=== PATIENT | female | born 1945 | race Caucasian/White ===

== ENCOUNTER 2024-09-21 00:27 | Observation (INO) ==
[2024-09-21] MEDS ORDERED: 0.9 % SODIUM CHLORIDE 1000 ML 1,000 ML IV SCH (00:45)
--- NOTE | 2024-09-21 00:49 | Emergency Department Note ---
HPI - Weakness General Chief complaint: Weakness Stated complaint: fall- laceration Time Seen by Provider: 09/21/24 00:29 Source: patient, family and EMS Mode of arrival: ambulance Limitations: no limitations History of Present Illness HPI Narrative: This is a 78-year-old white female who presents with 2 days of lethargy and weakness. Patient states she was diagnosed with a UTI, and has been taking antibiotics for it. She states she is progressively worsening. She denies urinary symptoms currently, but states she feels very weak and lethargic. She fell while trying to ambulate to the restroom this evening, and obtained a skin tear to her right arm, as well as a left periorbital contusion. She denies nausea or vomiting. She denies chest pain or shortness of breath. She denies fever. Nothing makes her symptoms better or worse. She is in no distress and has no other complaints. She does admit to smoking cannabis, but has no other drug use, denies any opiate use. MD Complaint: Reports generalized weakness Onset (ago): day(s) (2) Duration: Reports progressively worsening Location: Reports generalized Migration: Reports none Severity: moderate Quality: Denies tingling or numbness Relieving factors: Reports none Exacerbating factors: Reports exertion Context: Reports recent illness Associated symptoms: Reports confusion; Denies chest pain, dysuria, easy bruising or fever/chills Related Data Previous Rx's Medication Instructions Recorded cephalexin 500 mg capsule 500 mg PO BID UTI 5 days #10 caps 11/04/23 Allergies Allergy/AdvReac Type Severity Reaction Status Date / Time haloperidol (From Haldol) Allergy Verified 09/21/24 00:46 nitrofurantoin Allergy Verified 09/21/24 00:46 Review of Systems Status of ROS 10 or more systems reviewed and unremark able except as noted in history and below Constitutional Reports: fatigue and malaise; Denies: fever, chills or change in weight Eyes Denies: change in vision, blurry vision, blind spots, light sensitivity or eye discomfort Ears, nose, mouth, and throat Denies: throat pain, neck pain, throat swelling, difficulty swallowing or hoarseness Cardiovascular Denies: chest pain, palpitations, edema or swelling of feet/ankles Respiratory Denies: shortness of breath, cough, wheezing or stridor Gastrointestinal Denies: abdominal pain, nausea or vomiting Genitourinary Denies: painful urination, urinary frequency or urinary urgency Musculoskeletal Denies: back pain, neck pain, extremity pain or extremity swelling Integumentary/Breast Denies: rash, itching or redness Neurological Denies: headache, numbness in extremities or weakness in extremities Psychiatric Denies: anxiety, mood swings, panic attacks or change in sleep pattern Endocrine Reports: fatigue; Denies: excessive urination or excessive thirst Hematologic/Lymphatic Denies: easy bruising, easy bleeding or enlarged lymph nodes Allergic/Immunologic Denies: hives, throat swelling, tongue swelling or facial swelling [facility] Medical History (Updated 09/21/24 @ 01:02 by Kimberley Galeas RN) History of common carotid artery stent placement FHx: cholecystectomy Anxiety Osteoporosis Nerve pain Hyperlipidemia Hypertension Asthma Alzheimer's dementia Low iron Diabetes Depression Hypokalemia Fluid retention Chest pain GERD (gastroesophageal reflux disease) Overactive bladder Anemia History of common carotid artery stent placement Myocardial infarct Asthma Hypertension Diabetes Surgical History History of hysterectomy History of section Social History Smoking status: never smoker Within the past year, how often did you have a drink containing alcohol: never Score interpretation: A score less than 3 is consistent with normal alcohol consumption. Non-prescribed substance use: cannabis (any form) Problems where you live: no known problems Feel stressed/tense/nervous/anxious/difficulty sleeping: very much Life stressors: other Life stressor details: 1 Due to disability, difficulty making decisions: No Exam Constitutional: normal general appearance, no apparent distress and average body habitus Vital Signs - 24 hr 09/21/24 00:27 09/21/24 00:27 09/21/24 00:45 Temperature 97.3 F L Pulse Rate 62 64 Respiratory Rate 16 17 Blood Pressure 96/46 90/36 Pulse Oximetry 95 96 Oxygen Delivery Me thod Nasal Cannula Nasal Cannula Nasal Cannula Oxygen Flow Rate 3 3 3 HENMT: normocephalic, head/scalp traumatic (left periorbital contusion. ), hearing grossly normal bilaterally, external ears normal, EACs normal and external nose normal Eyes: PERRL, EOMs intact bilaterally and conjunctivae normal Neck/C-Spine: visual inspection normal, trachea midline and cervical spine nontender Lymph: no lymphadenopathy noted and no lymphedema noted Chest: inspection of chest normal and palpation of chest normal Respiratory: breath sounds equal bilaterally, normal respiratory effort and clear to auscultation bilaterally Cardiovascular: normal heart rate noted, regular rhythm noted, no gallop, no rub and no murmur Gastrointestinal: abdomen normal to inspection, abdomen soft to palpation and nontender to palpation Genitourinary: no CVA tenderness and bladder normal to palpation Back/Pelvis: spine normal to inspection, no thoracic spine tenderness, no lumbar spine tenderness, thoracic spine ROM normal and lumbar spine ROM normal Extremities: normal to inspection, normal to palpation, no tenderness and full ROM Neurology: no movement abnormality noted, no focal motor deficit noted, no sensory deficits noted, gait abnormality noted (staggering) and coordination abnormality noted (weak) Psychiatry: mental status abnormal, cooperative and affect normal Skin: skin color normal, no rash, no lesions and no ecchymosis noted Course Course Hospital Course: Patient appears to be septic, borderline shock. Patient improved with IV fluids. Patient with known UTI, presumed possible urosepsis. Patient given IV antibiotics along with fluid bolus in the ER. Labs, chest x-ray ordered. Patient stable for admission to our facility here for continued workup, IV fluids, and IV antibiotics Vital Signs Vital signs: Vital Signs Temperature 97.3 F L 09/21/24 00:27 Pulse Rate 62 09/21/24 00:27 Respiratory Rate 16 09/21/24 00:27 Blood Pressure 96/46 09/21/24 00:27 Pulse Oximetry 95 09/21/24 00:27 Oxygen Delivery Method Nasal Cannula 09/21/24 00:27 Oxygen Flow Rate 3 09/21/24 00:27 Temperature 97.3 F L 09/21/24 00:27 Pulse Rate 64 09/21/24 00:45 Respiratory Rate 17 09/21/24 00:45 Blood Pressure 90/36 09/21/24 00:45 Pulse Oximetry 96 09/21/24 00:45 Oxygen Delivery Method Nasal Cannula 09/21/24 00:45 Oxygen Flow Rate 3 09/21/24 00:45 MDM - Weakness MDM Narrative Medical decision making narrative: Sepsis, UTI, pneumonia, weakness, head injury, stroke Differential Diagnosis Differential diagnosis: Likely acute myocardial infarction, anemia, hypoglycemia, hypothyroidism, rhabdomyolysis, sepsis and dehydration Medical Records Attestation: I reviewed the patient's medical records. Lab Data Attestation: I reviewed the patient's lab results. Labs: Lab Results 09/21/24 09/21/24 Range/Units 01:00 01:06 WBC 12.4 H (4.3-9.3) K/uL RBC 4.7 (4.00-5.50) M/uL Hgb 12.7 (12.5-15.8) gm/dL Hct 40.3 (35.9-46.7) % MCV 86.6 (81.0-93.7) fl MCH 27.3 L (27.6-32.2) pg MCHC 31.5 L (33.1-35.3) g/dl RDW 15.5 H (11.4-14.2) % Plt Count 207 (152-353) K/uL MPV 7.9 (6.9-10.8) fl Gran % 72.3 H (47.8-71.3) % Lymph % (Auto) 18.0 L (20.0-43.0) % Riley % (Auto) 6.4 (3.6-9.8) % Eos % (Auto) 2.8 (0.4-2.8) % Baso % (Auto) 0.5 (0.1-0.85) Lymph # (Auto) 2.2 (1.1-3.1) Riley # (Auto) 0.8 L (1.1-3.1) Eos # (Auto) 0.4 H (0.0-0.2) Baso # (Auto) 0.1 (0.0-0.1) Absolute Gran (auto) 9.0 H (2.3-6.0) COVID-19 (SHAHEEN) Not detected (Not Detectd) Imaging Data Imaging ordered: Chest x-ray and CT scan - head Attestation: I personally reviewed and interpreted this imaging study as follows: My impression: CT head without contrast: No acute traumatic findings CT C-spine without contrast: No acute traumatic findings Chest x-ray: No acute cardiopulmonary disease. Critical Care Time Critical Care Time Critical Care Time: Yes Total Critical Care Time: 155 Attestation: I Spent 155 minutes of critical care time with this patient, exclusive of any procedures. Discharge Plan Discharge Patient Disposition: Admitted As Observation Condition: Stable Clinical Impression: Sepsis, Acute UTI, AMS (altered mental status), Generalized weakness, Closed head injury, Fall from slipping Time of Disposition: 02:25 Procedures ED Procedure Instructions IV fluids x120 minutes IV meds x2
[2024-09-21] MEDS ORDERED: PIPERACILLIN SODIUM/TAZOBACTAM 2.25 GM VIAL IV ONE (01:06)
[2024-09-21] MEDS: 0.9 % SODIUM CHLORIDE 1000 ML 1,000 ML IV ONE (01:07)
[2024-09-21] MEDS ORDERED: 0.9 % SODIUM CHLORIDE 1000 ML 1,000 ML IV ONE (01:08)
[2024-09-21] MEDS ORDERED: 0.9 % SODIUM CHLORIDE MB+ 100 ML IV ONE (01:08)
[2024-09-21] MEDS: SODIUM CHLORIDE MB 0.9% IV ONE (01:08)
[2024-09-21] MEDS: PIPERACILLIN TAZOBACTAM IV ONE (01:08)
[2024-09-21 01:45] LABS: Basophils #(Absolute) Auto 0.1 (0.0-0.1); Basophils%(Percent) Auto 0.5 (0.1-0.85); Eosinophils#(Absolute)Auto 0.4 (0.0-0.2); Eosinophils%(Percent) Auto 2.8 % (0.4-2.8); Granulocytes % - Auto 72.3 % (47.8-71.3); Hematocrit 40.3 % (35.9-46.7); Mean Corpuscular Volume 86.6 fl (81.0-93.7); Monocytes #(Absolute)- Auto 0.8 (1.1-3.1); Monocytes %(Percent)- Auto 6.4 % (3.6-9.8); Platelet Count 207 K/uL (152-353); White Blood Count 12.4 K/uL (4.3-9.3)
[2024-09-21 02:07] LABS: Potassium 4.2 mmol/L (3.6-5.2)
[2024-09-21] MEDS: LEVOFLOXACIN/D5W 750 MG/150 ML 750 MG/150 ML PIGGYBACK IV ONE (02:15)
[2024-09-21] MEDS ORDERED: LEVOFLOXACIN/D5W 750 MG/150 ML 750 MG/150 ML PIGGYBACK IV ONE (02:16)
[2024-09-21] MEDS ORDERED: DOCUSATE SODIUM 100 MG CAPSULE PO PRN (02:18)
[2024-09-21] MEDS ORDERED: ONDANSETRON HCL/PF 4 MG/2 ML VIAL INJ PRN (02:18)
[2024-09-21] MEDS ORDERED: MAGNESIUM HYDROXIDE 400 MG/5 ML ORAL.SUSP PO PRN (02:18)
[2024-09-21] MEDS: 0.9 % SODIUM CHLORIDE 1000 ML 1,000 ML IV SCH (03:36)
[2024-09-21] MEDS: ACETAMINOPHEN 500 MG TABLET PO PRN (03:37)
[2024-09-21 09:20] LABS: Amphetamine Screen Urine NEG. (NEGATIVE); Cannabinoid Screen Urine POS. (NEGATIVE); Cocaine Screen Urine NEG. (NEGATIVE); Methadone Screen Urine NEG. (NEGATIVE); Opiate Screen Urine NEG. (NEGATIVE)
[2024-09-21 09:25] LABS: Urine Appearance CLEAR (CLEAR); Urine Blood TRACE (NEG - TRACE); Urine Color YELLOW (STRAW/YELL.); Urine Urobilinogen Normal (NORMAL)
[2024-09-21 09:27] LABS: Urine Amorphous Sediment Negative (Negative); Urine Yeast Negative (Negative)
--- NOTE | 2024-09-21 09:47 | History & Physical Report ---
H&P: HPI History of Present Illness Chief complaint: HYPOTENSION, UTI, WEAKNESS, FALL Narrative: This is a 78-year-old presents to the ER and was admitted with 2 days of lethargy and weakness and a fall this PM while walking into the bathroom and sudden dizziness. Patient states she was diagnosed with a UT and has been taking Cipro, and has been taking antibiotics for it. She states she is progressively worsening. She denies urinary symptoms currently, but states she feels very weak and lethargic. She fell while trying to ambulate to the restroom this evening, and obtained a skin tear to her right arm, as well as a left periorbital contusion. She denies nausea or vomiting. She denies chest pain or shortness of breath. She denies fever. Nothing makes her symptoms better or worse. She is in no distress and has no other complaints. She does admit to smoking cannabis, but has no other drug use, denies any opiate use. Patients she has episodes of dizziness and falls frequently at home. Review of Systems Status of ROS 10 or more systems reviewed and unremark able except as noted in history and below Constitutional Reports: fatigue and malaise; Denies: fever, chills or change in weight Eyes Denies: change in vision, blurry vision, blind spots, light sensitivity or eye discomfort Ears, nose, mouth, and throat Denies: throat pain, neck pain, throat swelling, difficulty swallowing or hoarseness Cardiovascular Denies: chest pain, palpitations, edema, swelling of feet/ankles or shortness of breath with exertion Respiratory Denies: shortness of breath, cough, wheezing or stridor Gastrointestinal Denies: abdominal pain, nausea, vomiting or difficulty swallowing Genitourinary Denies: painful urination, urinary frequency or urinary urgency Musculoskeletal Denies: back pain, neck pain, extremity pain or extremity swelling Integumentary/Breast Denies: rash, itching or redness Neurological Denies: headache, numbness in extremities or weakness in extremities Psychiatric Denies: anxiety, mood swings, panic attacks or change in sleep pattern Endocrine Reports: fatigue; Denies: excessive urination or excessive thirst Hematologic/Lymphatic Denies: easy bruising, easy bleeding or enlarged lymph nodes Allergic/Immunologic Denies: hives, throat swelling, tongue swelling, facial swelling or wheezing [facility] Medical History (Updated 09/21/24 @ 14:56 by Bethany Tristan DO) Acute renal injury due to hypovolemia Hypoalbuminemia Hypotension due to hypovolemia Diabetes type 2 with atherosclerosis of arteries of extremities Frequent falls History of common carotid artery stent placement FHx: cholecystectomy Anxiety Osteoporosis Nerve pain Hyperlipidemia Hypertension Asthma Alzheimer's dementia Low iron Diabetes Depression Hypokalemia Fluid retention Chest pain GERD (gastroesophageal reflux disease) Overactive bladder Anemia History of common carotid artery stent placement Myocardial infarct Asthma Hypertension Diabetes Surgical History History of hysterectomy History of section Social History Smoking status: never smoker Within the past year, how often did you have a drink containing alcohol: never Score interpretation: A score less than 3 is consistent with normal alcohol consumption. Non-prescribed substance use: cannabis (any form) Problems where you live: no known problems Highest level of school completed/degree received: high school Feel stressed/tense/nervous/anxious/difficulty sleeping: decline to answer Life stressors: other Life stressor details: 1 Due to disability, difficulty making decisions: No Meds Home Medications and Allergies Home Medications Medication Instructions Recorded Confirmed Type amlodipine 5 mg-olmesartan 20 mg 1 tab PO BEDTIME 08/2809/21/24 History tablet calcium acetate(phosphat bind) 667 667 mg PO TID 09/2109/21/24 History mg capsule clopidogrel 75 mg tablet 75 mg PO DAILY 09/21/2408/28 History donepezil 10 mg tablet 10 mg PO BEDTIME 09/21/24 History empagliflozin 25 mg tablet 25 mg PO DAILY 09/21/24 History (Jardiance) ferrous sulfate 325 mg (65 mg 325 mg PO DAILY 09/21/24 09/21/24 History iron) tablet (FeroSul) folic acid 1 mg tablet 1 mg PO DAILY 09/21/2409/21 History furosemide 40 mg tablet 40 mg PO .MWF 09/21/2409/21 History gabapentin 300 mg capsule 300 mg PO QID 09/21/2409/21 History isosorbide mononitrate 30 mg 30 mg PO DAILY 09/21/24 0 09/21/24 History tablet,extended release 24 hr lorazepam 1 mg tablet 1 mg PO BID PRN anxiety 08/2809/21/24 History metoprolol tartrate 25 mg tablet 25 mg PO DAILY 09/21/24 History montelukast 10 mg tablet 10 mg PO BEDTIME 09/21/24 History pantoprazole 40 mg tablet,delayed 40 mg PO DAILY 09/2109/21/24 History release potassium chloride 10 mEq 10 meq PO .COMPLEX 09/21/24 09/21/24 History capsule,extended release pravastatin 20 mg tablet 20 mg PO BEDTIME 09/21/24 History quetiapine 50 mg tablet 50 mg PO DAILY 09/21/2408/28 History semaglutide 0.25 mg or 0.5 mg (2 0.5 mg subcut QWEEK 0 09/21/24 09/21/24 History mg/3 mL) subcutaneous pen injector (Ozempic) sitagliptin phosphate 100 mg 100 mg PO DAILY 09/21/24 09/21/24 History tablet (Januvia) solifenacin 10 mg tablet 10 mg PO DAILY 09/21/2408/28 History tramadol 100 mg tablet,extended 100 mg PO DAILY PRN pa in (scale 09/21/24 09/21/24 History release 24 hr score 4-6) venlafaxine 100 mg tablet 100 mg PO QDCC 09/21/2408/28 History venlafaxine 50 mg tablet 50 mg PO QDCC 09/21/2409/21 History Allergies Allergy/AdvReac Type Severity Reaction Status Date / Time haloperidol (From Haldol) Allergy Verified 09/21/24 00:46 nitrofurantoin Allergy Verified 09/21/24 00:46 Exam Constitutional: abnormal general appearance (disheveled), (chronically ill) and (frail appearing), no apparent distress, abnormal body habitus (obese) and limitations noted (physical limitations) Vital Signs - 24 hr 09/21/24 00:27 09/21/24 00:27 09/21/24 00:45 Temperature 97.3 F L Pulse Rate 62 64 Pulse Rate [Bilate ral] Respiratory Rate 16 17 Blood Pressure 96/46 90/36 Blood Pressure [Ri ght Arm] Pulse Oximetry 95 96 Oxygen Delivery Me thod Nasal Cannula Nasal Cannula Nasal Cannula Oxygen Flow Rate 3 3 3 09/21/24 01:00 09/21/24 02:00 09/21/24 03:00 Temperature Pulse Rate 63 69 73 Pulse Rate [Bilate ral] Respiratory Rate 15 16 20 Blood Pressure 92/44 109/57 112/58 Blood Pressure [Ri ght Arm] Pulse Oximetry 96 96 95 Oxygen Delivery Me thod Nasal Cannula Nasal Cannula Nasal Cannula Oxygen Flow Rate 3 3 3 09/21/24 03:00 09/21/24 03:29 09/21/24 03:38 Temperature 97.8 F 98.3 F Pulse Rate 73 Pulse Rate [Bilate ral] 76 Respiratory Rate 20 20 Blood Pressure 112/58 Blood Pressure [Ri ght Arm] 153/66 Pulse Oximetry 96 99 Oxygen Delivery Me thod Nasal Cannula Nasal Cannula Oxygen Flow Rate 09/21/24 03:40 09/21/24 07:46 Temperature 98.3 F 97.8 F Pulse Rate Pulse Rate [Bilate ral] 76 76 Respiratory Rate 20 20 Blood Pressure Blood Pressure [Ri ght Arm] 153/66 136/58 Pulse Oximetry 99 96 Oxygen Delivery Me thod Nasal Cannula Nasal Cannula Oxygen Flow Rate 3 HENMT: normocephalic, head/scalp traumatic (left periorbital contusion. cheeck abrasion left) (abrasion) and (contusion), hearing grossly normal bilaterally, external ears normal, EACs normal, external nose normal, oral mucous membranes abnormal and dentition abnormal Eyes: PERRL, EOMs intact bilaterally, conjunctivae normal, no scleral icterus, papilledema noted and periorbital findings abnormal Neck/C-Spine: visual inspection normal, trachea midline, cervical spine nontender, cervical full ROM noted, supple, no meningeal signs and thyroid normal Lymph: no lymphadenopathy noted and no lymphedema noted Chest: inspection of chest normal and palpation of chest normal Respiratory: breath sounds equal bilaterally, normal respiratory effort, clear to auscultation bilaterally, no wheezes, no rales and no retractions Cardiovascular: normal heart rate noted, regular rhythm noted, no gallop, no rub, no murmur, no JVD, no clicks and peripheral pulses 2+ throughout Gastrointestinal: abdomen normal to inspection, abdomen soft to palpation, nontender to palpation, nondistended, normoactive bowel sounds, hepatosplenomegaly noted, no masses, no pulsatile mass and no ascites Genitourinary: no CVA tenderness and bladder normal to palpation Back/Pelvis: spine abnormal to inspection, no thoracic spine tenderness, no lumbar spine tenderness, thoracic spine ROM abnormal and lumbar spine ROM abnormal Extremities: abnormal to inspection, normal to palpation, tenderness noted, full ROM and deformity noted (skin tear to the forearm from recent fall, several old bruises) Neurology: medical claims examiner II-XII intact, no movement abnormality noted, no focal motor deficit noted, sensory deficit noted, gait abnormality noted (staggering), speech normal, coordination abnormality noted (weak), no pronator drift noted and GCS normal Psychiatry: Mental Status Exam documented within this Exam's Psych section mental status abnormal, thought process abnormality noted, cooperative, affect abnormality noted (flat), psychomotor abnormality noted (disorganized) and memory normal Feel stressed/tense/nervous/anxious/difficulty sleeping: decline to answer Skin: skin color normal, no rash, no lesions, ecchymosis noted, wound(s) noted Reports (superficial), no lacerations, skin turgor normal, no petechiae, no mottling, nails abnormality noted and no alopecia Assessment and Plan Assessment and Plan (1) Dehydration: Code(s): E86.0 - Dehydration (2) UTI (urinary tract infection): Qualifiers: Urinary tract infection type: site unspecified Hematuria presence: without hematuria Qualified Code(s): N39.0 - Urinary tract infection, site not specified Code(s): N39.0 - Urinary tract infection, site not specified (3) Acute renal injury due to hypovolemia: Code(s): N17.9 - Acute kidney failure, unspecified; E86.1 - Hypovolemia (4) Diabetes type 2 with atherosclerosis of arteries of extremities: Code(s): E11.51 - Type 2 diabetes mellitus with diabetic peripheral angiopathy without gangrene; I70.209 - Unspecified atherosclerosis of platinum arteries of extremities, unspecified extremity (5) Frequent falls: Code(s): R29.6 - Repeated falls (6) Hypotension due to drugs: Code(s): I95.2 - Hypotension due to drugs (7) Left hip pain: Code(s): M25.552 - Pain in left hip (8) Osteoporosis: Qualifiers: Osteoporosis type: age-related Presence of current pathological fracture: without current pathological fracture Qualified Code(s): M81.0 - Age- related osteoporosis without current pathological fracture Code(s): M81.0 - Age-related osteoporosis without current pathological fracture (9) Hypertension: Qualifiers: Hypertension type: primary hypertension Qualified Code(s): I10 - Essential (primary) hypertension Code(s): I10 - Essential (primary) hypertension (10) Low iron: Code(s): E61.1 - Iron deficiency (11) Hypotension due to hypovolemia: Code(s): E86.1 - Hypovolemia (12) Hypoalbuminemia: Code(s): E88.09 - Other disorders of plasma-protein metabolism, not elsewhere classified Plan 0.9% NS at 100 ml per hour hold BP medications until blood pressure up again finish cipro for the UTI Rocephin 1 gram IV every 12 hours patient left AMA stating that she would be more comfortable did not even finish physical therapy assessment for weakness falls and the dizziness patient stated she has intermittantly at home and son came to pick patient up and states she will follow up with her PCP tomorrow Results Labs Labs: CBC 09/21/24 Range/Units 01:00 WBC 12.4 H (4.3-9.3) K/uL RBC 4.7 (4.00-5.50) M/uL Hgb 12.7 (12.5-15.8) gm/dL Hct 40.3 (35.9-46.7) % Plt Count 207 (152-353) K/uL Gran % 72.3 H (47.8-71.3) % Lymph % (Auto) 18.0 L (20.0-43.0) % [place] % (Auto) 6.4 (3.6-9.8) % Eos % (Auto) 2.8 (0.4-2.8) % Baso % (Auto) 0.5 (0.1-0.85) Lymph # (Auto) 2.2 (1.1-3.1) [place] # (Auto) 0.8 L (1.1-3.1) Eos # (Auto) 0.4 H (0.0-0.2) Baso # (Auto) 0.1 (0.0-0.1) Absolute Gran (auto) 9.0 H (2.3-6.0) CMP 09/21/24 01:00 Sodium 144 Potassium 4.2 Chloride 109.0 H Carbon Dioxide 25 BUN 21 H Creatinine 2.3 H Glucose 176 H Calcium 8.5 Liver Function 09/21/24 Range/Units 01:00 Total Bilirubin 0.40 (0.0-1.0) mg/dL AST 25 (15-37) U/L ALT 20 L (30-65) U/L Alkaline Phosphatase 79 (50-136) U/L Albumin 3.2 L (3.4-5.0) g/dL Urine 09/21/24 08:26 Urine Color Yellow Urine Appearance Clear Ur Specific Calvin 1.020 Urine Protein Negative Urine Glucose (UA) 3+ Pulse Oximetry Attestation: I have reviewed the pertinent pulse oximetry results. ECG Attestation: I have reviewed the pertinent ECG results. Prior ECG tracings: available for review Imaging Imaging ordered: Chest x-ray, CT scan - head and other (ct NECK) Attestation: I have reviewed the pertinent imaging results. Radiologist's impression: XR CHEST 1V HISTORY: sepsissepsis; COMPARISON: 09/14/2022 FINDINGS: The cardiomediastinal silhouette is stable. Chronic appearing interstitial changes in the lungs. No acute airspace disease. No pneumothorax or effusion. No acute osseous abnormality. IMPRESSION: No acute cardiopulmonary disease. CT CERVICAL SPINE WO CON HISTORY: traumatrauma; COMPARISON: None available. TECHNIQUE: Multiple axial images of the cervical spine were obtained from the skull base to the thoracic inlet without administration of IV contrast. Sagittal and coronal reformats were performed and reviewed. Dose reduction techniques including Automated Exposure Control (AEC) and adjustment of mA and kV were utilized. FINDINGS: Alignment of the cervical spine is maintained. No evidence for acute cortical disruption or subluxation can be seen. The central canal remains free of compromise from bony fragments or significant soft tissue encroachment. The posterior elements appear unremarkable. The prevertebral soft tissues are normal in their appearance. In addition, the surrounding paraspinous soft tissues are unremarkable. Moderate degenerative changes of the cervical spine are incidentally noted. IMPRESSION: No evidence for traumatic injury of the cervical spine. CT HEAD/BRAIN WO CON HISTORY: traumatrauma; COMPARISON: 12/21/2022 TECHNIQUE: Multiple axial images of the head were performed from the skullbase to the vertex using standard departmental protocol. Sagittal and coronal reformatted images were performed. Dose reduction techniques including Automated Exposure Control (AEC) and adjustment of mA and kV were utilized. FINDINGS: The sulci, cisterns and ventricles are age appropriate. Mild cortical atrophy compatible with patient's age. Decreased attenuation in the periventricular and subcortical white matter consistent with microvascular ischemic white matter changes. There is no evidence of acute territorial infarction, hemorrhage, mass, mass effect or midline shift. There are no abnormal intra-axial or extra- axial fluid collections. The visualized paranasal sinuses and mastoid air cells are predominantly clear. IMPRESSION: Mild cortical atrophy with microvascular ischemic white matter changes. No evidence of acute intracranial abnormality.
[2024-09-21 11:23] LABS: Hematocrit 42.2 % (35.9-46.7); Mean Corpuscular Volume 88.9 fl (81.0-93.7); White Blood Count 15.8 K/uL (4.3-9.3)
[2024-09-21 11:24] LABS: Basophils%(Percent) Auto 0.3 (0.1-0.85); Eosinophils%(Percent) Auto 1.7 % (0.4-2.8); Granulocytes#(Absolute)- Auto 12.6 (2.3-6.0); Monocytes %(Percent)- Auto 5.1 % (3.6-9.8); Platelet Count 194 K/uL (152-353)
[2024-09-21 11:25] LABS: Eosinophils#(Absolute)Auto 0.3 (0.0-0.2); Monocytes #(Absolute)- Auto 0.8 (1.1-3.1)
[2024-09-21 11:38] VITALS: BP 143/62; PULSE 72; RESP 19; TEMP 98.7
[2024-09-21 11:45] LABS: Potassium 4.1 mmol/L (3.6-5.2)
[2024-09-22] MEDS ORDERED: LEVOFLOXACIN/D5W 500 MG/100 ML 500 MG/100 ML PIGGYBACK IV SCH (03:00)
== END 2024-09-21 13:04 | disposition left against medical advice (07) ==
LOC: ED 00:27 → MS 00:27
PROVIDERS: ADMIT Physician Assistant; ATTEND Family Medicine